=== PATIENT | female | born 1970 | race Caucasian/White ===

== ENCOUNTER → 2022-09-24 14:59 | Outpatient (CLI) | payer OTHER, SELFPAY ==
--- NOTE | ~2022-09-24 | MM_ITS ---
EXAMINATION: MM screening [facility] BI w eugenio HISTORY: Screening TECHNIQUE: Craniocaudal and mediolateral oblique 3-D tomosynthesis images were obtained and synthetic 2-D images were generated. CAD analysis was submitted and interpreted. COMPARISON: No prior mammogram is available for comparison at this institution. BREAST PARENCHYMAL COMPOSITION: The breasts are heterogeneously dense, which may obscure small masses FINDINGS: There are extensive punctate monomorphic bilateral breast calcifications. There are no susp icious masses or architectural distortion. IMPRESSION: 1. Bilateral scattered punctate monomorphic breast calcifications. 2. Comparison to previous outside mammograms recommended to assess stability. BI-RADS Category 0: Incomplete: Needs additional imaging evaluation. Reviewed, dictated and finalized at location A.
== END ==
PROVIDERS: PCP Advanced Practice Midwife; Visit Provider Advanced Practice Midwife
DX: Z12.31 Encounter for screening mammogram for malignant neoplasm of breast (principal); R92.8 Other abnormal and inconclusive findings on diagnostic imaging of breast
CPT/HCPCS: 77063; 77067

== ENCOUNTER → 2023-09-26 10:31 | Outpatient (CLI) | payer OTHER, SELFPAY ==
--- NOTE | ~2023-09-26 | MM_ITS ---
EXAMINATION: MM screening [facility] BI w eugenio HISTORY: Screening TECHNIQUE: Craniocaudal and mediolateral oblique 3-D tomosynthesis images were obtained and synthetic 2-D images were generated. CAD analysis was submitted and interpreted. COMPARISON: Comparison to multiple prior studies sequentially, with oldest reviewed study dated 07/19. BREAST PARENCHYMAL COMPOSITION: The breasts are heterogeneously dense, which may obscure small masses . FINDINGS: There are benign-appearing bilateral breast calcifications. There is no evidence of suspici ous mass, calcification, or architectural distortion to suggest malignancy in either breast. There jimenez s been no suspicious interval change. IMPRESSION: 1. No mammographic evidence of malignancy. 2. Recommend routine screening mammography in one year. BI-RADS Category 2: Benign finding(s). Reviewed, dictated and finalized at location A. [employer]
== END ==
PROVIDERS: PCP Advanced Practice Midwife; Visit Provider Advanced Practice Midwife
DX: Z12.31 Encounter for screening mammogram for malignant neoplasm of breast (principal)
CPT/HCPCS: 77063; 77067

== ENCOUNTER 2024-09-28 11:19 | Outpatient (CLI) | payer OTHER, SELFPAY ==
--- NOTE | ~2024-09-28 | MM_ITS ---
EXAMINATION: MM screening [facility] BI w eugenio HISTORY: Screening TECHNIQUE: Craniocaudal and mediolateral oblique 3-D tomosynthesis images were obtained and synthetic 2-D images were generated. CAD analysis was submitted and interpreted. COMPARISON: Comparison to multiple prior studies sequentially, with oldest reviewed study dated 06/07. BREAST PARENCHYMAL COMPOSITION: Dense: The breasts are heterogeneously dense, which may obscure small masses FINDINGS: There is no evidence of suspicious mass, calcification, or architectural distortion to sugg est malignancy in either breast. There has been no suspicious interval change. IMPRESSION: 1. No mammographic evidence of malignancy. 2. Recommend routine screening mammography in one year. BI-RADS Category 1: Negative Reviewed, dictated and finalized at location B. SUPPORT SERVICE TECH
== END 2024-09-28 11:20 | disposition home or self-care (01) ==
PROVIDERS: Visit Provider Obstetrics & Gynecology
DX: Z12.31 Encounter for screening mammogram for malignant neoplasm of breast (principal)
CPT/HCPCS: 77063; 77067

== ENCOUNTER 2025-02-06 09:24 | Emergency (ER) | payer OTHER, SELFPAY ==
[2025-02-06 09:35] VITALS: BP 113/77; PULSE 54; RESP 18; TEMP 36.4; O2SAT 100
--- NOTE | 2025-02-06 09:45 | ED.URI ---
HPI - URI/Sore Throat General Chief Complaint: Upper Respiratory Infection Stated Complaint: Cough and congestion Time Seen by Provider: 02/06/25 09:46 Source: patient Mode of arrival: ambulatory Limitations: no limitations History of Present Illness HPI Narrative: 55 yo F presents with c/o nasal congestion, sinus pressure since Nov. Has seen ENT and PCP and has taken abx several times for sinus infection. Taking claritin and singulair daily.ENT says next step in sinus surgery and pt does not want that. Has not seen an bathroom tiling professional. Having worsening of congestion and sinus pressure over past week. Yellow drainage from nose. no chest pain or shortness breath. Afebrile. All systems reviewed and negative except as noted above. Related Data Home Medications ?Medication ?Instructions ?Recorded ?Confirmed ?Last Taken ?Type amlodipine 5 mg tablet mg 02/06/25 Unknown History azelastine 137 mcg (0.1 %) nasal intranasal 02/06/25 Unknown History spray esomeprazole magnesium 40 mg mg 02/06/25 Unknown History capsule,delayed release mesalamine 1.2 gram tablet,delayed g PO 02/06/25 Unknown History release montelukast 10 mg tablet mg 02/06/25 Unknown History trazodone 50 mg tablet mg 02/06/25 Unknown History Allergies Allergy/AdvReac Type Severity Reaction Status Date / Time No Known Allergies Allergy Verified 02/06/25 09:36 Review of Systems Review of Systems: CONSTITUTIONAL: Denies fever, chills, or sweats. EYES: Denies visual changes, redness, or discharge. ENT: reports rhinorrhea, congestion, sinus pressure. Denies sore throat, or otalgia. CARDIOVASCULAR: Denies chest pain, palpitations, or edema. RESPIRATORY: Reports cough. Denies dyspnea. GASTROINTESTINAL: Denies abdominal pain, nausea, vomiting, or diarrhea. GENITOURINARY: Denies dysuria or hematuria. SKIN: Denies rash or itching. MUSCULOSKELETAL: Denies back pain, joint pain, or myalgia. NEUROLOGIC: Denies headache, numbness, or weakness. PSYCHIATRIC: Denies anxiety or depression. All other systems reviewed are negative, except as documented in HPI. PMFSH Comments At time of signature, agree with nursing past medical, surgical, social and family history. There is no relevant family history pertinent to the presenting complaint. Exam Narrative: GENERAL: This is a well-nourished, well-developed patient, in no apparent distress. HEAD: normocephalic, atraumatic. EYES: PERRL. Sclera clear/white. Vision is grossly intact. EARS: External ears normal, auditory canals clear and without drainage, TMs normal without perforation. Hearing grossly intact. NOSE: External nose normal with purulent nasal drainage, erythema and swelling to bilateral nares. Frontal and maxillary sinus tenderness on palpation THROAT: Mucous membranes moist, erythematous with postnasal drainage NECK: Neck supple, non-tender without lymphadenopathy, masses or thyromegaly. CARDIOVASCULAR: Regular rate and rhythm without murmurs, gallops, or rubs. RESPIRATORY: Clear to auscultation. Breath sounds equal bilaterally. No wheezes, rales, or rhonchi. SKIN: warm, Dry, intact with no suspicious lesions or rash, good texture and turgor. NEURO: awake, alert, and oriented to person, place and time. There were no obvious focal neurologic abnormalities. EXTREMITIES: No joint tenderness, effusion, or edema noted. Course Course Level of Care: Express Care Visit Vital Signs Vital signs: Vital Signs Temperature 36.4 C 02/06/25 09:35 Pulse Rate 54 L 02/06/25 09:35 Respiratory Rate 18 02/06/25 09:35 Blood Pressure 113/77 02/06/25 09:35 Pulse Oximetry 100 02/06/25 09:35 Oxygen Delivery Room Air 02/06/25 09:35 Temperature 36.4 C 02/06/25 09:35 Pulse Rate 54 L 02/06/25 09:35 Respiratory Rate 18 02/06/25 09:35 Blood Pressure 113/77 02/06/25 09:35 Pulse Oximetry 100 02/06/25 09:35 Oxygen Delivery Room Air 02/06/25 09:35 reviewed MDM - URI/Sore Throat MDM Narrative Medical decision making narrative: will treat with antibiotics bacterial sinusitis due to duration of symptoms and and exam findings. Recommend patient see bathroom tiling professional to further evaluate sinus symptoms. Please be advised this is a medical document. It is intended for [id number] communication. It is written in medical language and may contain unfamiliar abbreviations or verbiage. Medical documents are intended to carry relevant information, facts as evident, and the clinical opinion of the practitioner at the time of the encounter. This report may have been done utilizing a voice recognition system. Attempts have been made to correct errors. However, there may be uncorrected grammatical, spelling, and recognition errors present. The file time of this note does not necessarily represent the time of service. Discharge Plan Discharge Clinical Impression: Acute bacterial sinusitis Patient Disposition: Home, Self-Care Condition: Stable Instructions: Antibiotic Form, Sinusitis (ED) Additional Instructions: take medications as prescribed. Continue taking allergy medications daily. Take Tylenol or ibuprofen every 6-8 hours as needed for pain and fever. Drink at least 64 oz of water a day. Follow-up with an bathroom tiling professional at next available appointment. Patient Language: Turkmen Prescriptions: New benzonatate 200 mg capsule 200 mg PO TID PRN (Reason: cough) Qty: 20 0RF methylprednisolone [Medrol (Chandan)] 4 mg tablets,dose pack See Rx Instructions PO .COMPLEX Qty: 21 0RF Rx Instructions: orally per package directions amoxicillin-pot clavulanate 875-125 mg tablet 1 tablet PO Q12H 7 Days Qty: 14 0RF No Action mesalamine 1.2 gram tablet,delayed release (DR/EC) PO trazodone 50 mg tablet amlodipine 5 mg tablet esomeprazole magnesium 40 mg capsule,delayed release(DR/EC) montelukast 10 mg tablet azelastine 137 mcg (0.1 %) spray,non-aerosol INTRANASAL Follow-up/Referrals: Nathanael,JOSEFINA David [Primary Care Provider] - Time of Disposition: 09:55
--- OUTSIDE RECORDS SUMMARY | 2025-02-06 10:25 | XMS_ITS | Clinical Summary ---
Author Organization [facility] Address [address] [place] [address] Care Team Providers Care Weaver Hand Loom Name Role Phone Unavailable Primary Care Provider Unavailabl e Immunizations Immunization Administration Dates Next Due Covid-19, Mrna, Lnp-s, PF, 5 0 mcg/0.25 mL dose (Moderna) 12/16/2021 Social History Tobacco Use Types Packs/Day Years Used Date Smoking Tobacco: Never Assessed Comments Unknown Sex and Gender Information Value Date Recorded Sex Assigned at Not on file Legal Sex Female 8:07 PM [employer] Gender Identity Not on file Sexual Orientation Not on file Plan of Treatment Health Maintenance Due Date Last Done Comments Hepatitis C Virus (HCV) Screening 1971 Mammogram 1971 TdaP Immunization 1971 Hepatitis B Immunization (1 of 3 - 19+ 3-dose series) 1990 Pap Smear 01/30/1992 Cervical Cancer Screening (CCS) 2001 HPV/Cotest 2001 Colonoscopy 01/30/2016 Colorectal Cancer Screening 01/30/2016 Cologuard 2021 Immunochemical Fecal Occult Blood 2021 Pneumococcal Immunization (5 0+ years) (1 of 1 - PCV) 2021 Zoster Immunization (1 of 2) 2021 SARS-COV-2 Immunization (#1) 01/13/2022 12/16/2021 Influenza Immunization (#1) 2024 08/25/2015 Respiratory Syncytial Virus (RSV) Immunization (Adult) (1 - 1-dose 75+ series) 2046 Meningococcal Immunization (ACWY) Aged Out No longer eligible based on patient's age to complete this topic Pneumococcal Immunization Combined Aged Out No longer eligible based on patient's age to complete this topic Rotavirus Immunization Aged Out No lo nger eligible based on patient's age to complete this topic
--- OUTSIDE RECORDS SUMMARY | 2025-02-06 10:26 | XMS_ITS | Data Portability ---
Author Organization [place] [facility] [address] [facility], Main Office Address [address] [place] [address] Care Team Providers Care Oil Filters Inspector Name Role Phone SHEFALI GLYNN Primary Care Provider [phone] Assessment No assessment recorded. Plan of Treatment Reminders Order Date Submit Date Provider Last Modified By Organization Details Last Modified Time Details Appointments None recorded. Lab None recorded. Referral None recorded. Procedures None recorded. Surgeries None recorded. Imaging None recorded. Medication Orders cefdinir [address] [facility][id number], [id number], [address], 14:23:25 Diflucan 150 [address] [facility] #[id number], [id number], [address], 14:23:24 Medrol (Chandan) 4 mg tablets in a dose pack 2024 025 [id number] [id number], [address], 14:23:25 Patient TargetsNo targets recorded. Patient Instructions Encounter Date Encounter Id Patient Instructions Last Modified By Organization Details Last Modified Time 12/26/2024 [id number] Prescribed cefdinir and Medrol Dosepak for antimicrobial coverage and inflammation. Also prescribed Diflucan due to candidiasis history with antibiotic use. Discussed possible side-effects with each medications. She will have a sinus CT completed. We will follow up when those results become available. [email or web address] Not available 12/26/2024 14:24:50 Reason for Referral None Reported. Results Created Date Observation Date Name Description Value Unit Range Abnormal Flag Note LastModifiedBy Organization Detail LastModifiedTime 12/31/19 25 12/28/2024 CT, sinus es, w/o contr ast No observ ation record ed. [email or web address] [id number] [place] [address], [place], [address], 12/31/2024 09:27:15 01/02/20 25 01/02/2025 CT, sinus es, w/o contr ast No observ ation record ed. [facility] [address] [place], [address], 01/02/2025 12:56:19 Result Notes None recorded. Problems Name Problem SNOMED Code Status Onset Date Resolution Date Notes Provider Name and Address Organization Details Recorded Time Chronic sinusitis 62727494 Active 025 Eli Braga RN [facility], [place] - [facility] 14:16:07 Problem Notes None recorded. Procedures Surgical History None recorded. Imaging Results Imaging Date Name Status LastModified by Organiz ation Details LastModified Time 12/28/2024 CT, sinuses, w/o contrast completed [email or web address] [id number] [place] [facility] [address], [place], [address], 12/31/2024 09:27:15 01/02/2025 CT, sinuses, w/o contrast completed [facility] [address] [place], [address], 01/02/2025 12:56:19 Procedure Notes None recorded. Medical Equipment None Reported. Allergies No known drug allergies Medications Name Sig Start Date Stop Date Status Note LastModified by Organization Details LastModified Time nitrofurantoin macrocrystal 50 mg capsule active Not Available Not Availabl e Not Available fluconazole 150 mg tablet TAKE 1 TABLET BY MOUTH DIRECTED active Not Available Not Available No t Available amlodipine 5 mg tablet active Not Available Not Available No t Available prednisolone acetate 1 % eye drops,suspensi on active Not Available Not Available Not Available esomeprazole magnesium 40 mg capsule,delaye d release active Not Available Not Available No t Available montelukast 10 mg tablet active Not Available Not Available No t Available zolpidem 10 mg tablet TAKE 1 TABLET BY MOUTH NIGHTLY NEEDED FOR SLEEP active Not Available Not Available No t Available methylpredniso lone 4 mg tablets in a dose pack TAKE 6 TABLETS ON DAY 1 DIRECTED ON PACKAGE AND DECREASE BY 1 TAB EACH DAY FOR A TOTAL OF 6 DAYS active Not Available Not Available No t Available cefdinir 300 mg capsule TAKE 1 CAPSULE BY MOUTH EVERY 12 HOURS FOR 10 DAYS active Not Available Not Available No t Available Claritin active Not Available Not Avai lable Not Available mesalamine 1.2 gram tablet,delayed release active Not Available Not Available Not Available Vitals Date Recorded Body weight Body mass index (BMI) Body height Body temperature Provider Name and Address Organization Details Last Updated DateTime 12/26/2024 93377.29 g 26.2 kg/m2 149.86 cm 98 [degF] Eli Braga RN [facility] [address] [facility] 12/26/2024 14:09:09 Social History Question Answer Notes LastModified by Organizat ion Details LastModified Time Tobacco Smoking Status Never Smoker Eli Braga RN null, [facility] [address] [facility] 12/26/2024 14:04:54 What Is Your Level Of Alcohol Consumption? Occasional [email or web address] Information not available 12/26/2024 Sex: Unknown Functional Status None recorded. Mental Status None recorded. Family History Nothing Reported Notes:NO ENT Medical History Condition Response HYPERTENSION Y Gynecological HistoryNo gynecological history recorded. Obstetrics History GPAL:G 0 P 0 0 0 0 Past Encounters Encounter ID Performer Location Encounter Start Date Encounter Closed Date Diagnosis/Indication Diagnosis SNOMED-CT Code Diagnosis ICD10 Code Diagnosis Note [id number] RUBEN Whiting [facility] [place] [address] [place] [address] 12/26/2024 13:58:00 12/26/2024 14:25:20 Chronic sinusitis 98841082 J32.9 Health Concerns Section Related Observation LastModified by Organization Detai ls LastModified Time None Recorded Concern Status LastModified by Organization Details LastModified Time None Recorded Advance Directives Directive None Recorded Payers Encounter Date Sequence Insurance Name Policy Number Policy Pugh Covered Member ID Pugh Member ID Guarantor Name 12/26/2024 1 [employer] - DOS PRIOR TO 2024 - [employer] () Devan Crawford [id number] oRmy Yvette Notes Date Note Type Note Provider Name and Address Organization Details Recorded Time 12/26/2024 text/html This patient has a past medical history significant for hypertension, ulcerative colitis, and kidney stones who presents to the office with persistent nasal congestion and sinus pressure onset approximately 3 months ago. She does report use of Singulair, Claritin, Flonase, and occasional Neti pot use without symptom relief. She has not been on any recent antibiotics or steroids for the use concerns. She has not had any imaging completed. She does note that about 5 years ago she had similar symptoms severe enough that she had vertigo like symptoms. Eli Figueredo, [facility] [address] [facility], [facility] [facility] [address], [place], [address], [facility] 12/26/2024 14:24:54 OBGyn Episode No OBEpisode recorded.
--- OUTSIDE RECORDS SUMMARY | 2025-02-06 10:26 | XMS_ITS | Data Portability ---
Author Organization 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 Needs refills on norvasc, macrodantin and ambien. She typically breaks ambien in half. Will send out 90 supply of each. [email or web address] Not available 11/05/2021 12:29:24 11/25/2023 11/25/2023 Annual gynecological exam performed. Patient will come back in a year unless there are new symptoms. Not available 11/25/2023 11:05:57 Plan of Treatment Reminders Order Date Submit Date Provider Last Modified By Organization Details Last Modified Time Details Appointments None recorded. Lab None recorded. Referral None recorded. Procedures None recorded. Surgeries None recorded. Imaging None recorded. Medication Orders Macrodantin 50 mg capsule 2020 [facility]/Pharmacy #[id number], [address] [place] [address], [address], 12:04:34 Norvasc 5 mg tablet 2020 021 [facility]/Pharmacy #[id number], [address], [place], [address], 12:04:35 Ambien 10 mg tablet 12/16/ 2021 12/16/2 021 [email or web address] Not available 12:04:27 Patient TargetsNo targets recorded. Patient InstructionsNo instructions recorded. Reason for Referral None Reported. Results Created Date Observation Date Name Description Value Unit Range Abnormal Flag Note LastModifiedBy Organization Detail LastModifiedTime 11/05/20 21 11/05/2021 IMAGE GUIDE D PAP AND HPV REGAR DLESS image guided Pap, HPV regardless of Pap result SEE RESULT S BELOW CASE REPOR T: Cytol ogy Gynec ologi andrae Repor t Case: [id number] Autho antwon martino Provi raghavendra: Charito Yu, CNLavinia Colle cted: 11/05 1222 Order ing Locat ion: [place] Patho logy Recei keaton: 11/06 0115 First Scree n: Richard Matson , [place] Rescr een: Deysi plaza, Adis santana, [place] Speci men: Scree farzad Pap - Image d, Cervi x STATE MENT OF ADEQU ACY: Satis facto ry for evalu ation Trans forma tion zone compo nent prese nt FINAL DIAGN OSIS: Negat mecca for Intra epith elial Lesio n or Miguel lucas (NIL) . Elect manju mckeon domenica d by Deysi plaza, Adis santana, CT on 11/16 at 7:47 PM ----- ----- ----- ----- ----- ----- ----- ----- ----- ----- ----- ----- ----- ----- ----- ----- ----- ---- HPV RESUL TS: HPV mRNA E6/E7 : No HPV mRNA Detec yrn NOTE: This high risk HPV mRNA assay detec ts fourt een high- risk HPV types (16, 18, 31, 33, 35, 39, 45, 51, 52, 56, 58, 59, 66, 68) witho ut diffe renti ation . COMME NT: Note: This speci men was revie wed by a Cytot echno logis t and/o r Patho logis t (as indic ated in this repor t) after evalu ation using the Thinp rep Imagi ng Syste m. CLINI ANDRAE INFOR MATIO N: Menst rual Statu s: LMP (if appli cable ): Clini andrae Histo ry/Pr eviou s Pap: Type of Neopl quynh (if appli cable ): Signi fican t Clini andrae Findi ngs: Other Histo ry: Hormo clara (if appli cable ): PAP EDUCA RASHI L NOTE: The Pap Test is a scree farzad test with an inher ent false negat mecca rate. Liqui d-bas e sampl ing may decre ase, but will not elimi karina, false negat mecca resul ts. A negat mecca resul t does not precl ude the prese nce and/o r devel opmen t of disea se, since the prese nce of abnor mal cells in the sampl e depen ds on the locat ion of the lesio n and sampl ing techn ique. Reymundo nued regul ar scree farzad is the best metho d of cance r preve ntion . If repor yrn cytol ogic findi ng do not corre late with physi andrae and/o r histo rical findi ngs, furth er inves tigat ion is recom analia d, as clini harika perry nted. Not Available [facility] (Lab) [address], [place], [address], 11/16/2021 20:49:44 11/25/19 24 11/25/2023 IMAGE GUIDE D PAP AND HPV REGAR DLESS image guided Pap, HPV regardless of Pap result SEE RESULT S BELOW CASE REPOR T: Cytol ogy Gynec ologi andrae Repor t Case: [id number] Autho antwon g Provi raghavendra: Danika Rose NP Colle cted: 11/25 1500 Order ing Locat ion: [place] Patho [place]y Recei keaton: 11/28 0726 First Scree n: Kathleen Enciso h, CT Rescr een: Aicha Samson Speci men: Scree farzad Pap - Image d, Cervi x STATE MENT OF ADEQU ACY: Satis facto ry for evalu ation Trans forma tion zone compo nent absen t The absen ce of an endoc ervic al compo nent was confi rmed by an addit clifton jacobs. FINAL DIAGN OSIS: Negat mecca for Intra epith elial Lesio n or Miguel lucas (NIL) . Elect malihaiglesia metzger d by Aicha Samson on 024 at 7:31 PM ----- ----- ----- ----- ----- ----- ----- ----- ----- ----- ----- ----- ----- ----- ----- ----- ----- ---- HPV RESUL TS: HPV mRNA E6/E7 : No HPV mRNA Detec yrn NOTE: This high risk HPV mRNA assay detec ts fourt een high- risk HPV types (16, 18, 31, 33, 35, 39, 45, 51, 52, 56, 58, 59, 66, 68) witho ut diffe renti ation . COMME NT: This speci men was revie wed by a Cytot echno logis t and/o r Patho logis t (as indic ated in this repor t) after evalu ation using the Thinp rep Imagi ng Syste m. CLINI ANDRAE INFOR MATIO N: Menst rual Statu s: LMP (if appli cable ): Clini andrae Histo ry/Pr eviou s Pap: Type of Neopl quynh (if appli cable ): Signi fican t Clini andrae Findi ngs: Other Histo ry: Hormo clara (if appli cable ): PAP EDUCA RASHI L NOTE: The Pap Test is a scree farzad test with an inher ent false negat mecca rate. Liqui d-bas ed sampl ing may decre ase, but will not elimi karina, false negat mecca resul ts. A negat mecca resul t does not precl ude the prese nce and/o r devel opmen t of disea se, since the prese nce of abnor mal cells in the sampl e depen ds on the locat ion of the lesio n and sampl ing techn ique. Reymundo nued regul ar scree farzad is the best metho d of cance r preve ntion . If repor yrn cytol ogic findi ng do not corre late with physi andrae and/o r histo rical findi ngs, furth er inves tigat ion is recom analia d, as clini harika warra nted. Not Available [facility] (Lab) [address], [place], [address], 11/28/2023 20:35:00 09/24/20 22 09/24/2022 MAMMO , scree farzad, bilat eral No observ ation record ed. [address], [place], [address], 09/27/2022 13:22:47 09/24/20 22 09/24/2022 MAMMO , scree farzad, bilat eral No observ ation record ed. [address] [facility] [address], [place], [address], 09/27/2022 13:22:47 11/25/19 23 09/24/2022 MAMMO , scree farzad, bilat eral No observ ation record ed. [facility] [address], [place], [address], 12/02/2022 18:26:33 11/25/19 23 09/24/2022 MAMMO , scree farzad, bilat eral No observ ation record ed. [facility] [address], [place], [address], 12/02/2022 18:25:54 09/26/20 23 09/26/2023 MAMMO , scree farzad, bilat eral No observ ation record ed. [facility] [address], [place], [address], 10/19/2023 11:03:33 09/28/20 24 09/28/2024 imagi ng/di agnos tic resul t No observ ation record ed. [facility] [address], [place], [address], 09/29/2024 19:54:36 09/28/20 24 09/28/2024 imagi ng/di agnos tic resul t No observ ation record ed. [facility] [address], [place], [address], 09/29/2024 19:54:37 Result Notes None recorded. Problems Name Problem SNOMED Code Status Onset Date Resolution Date Notes Provider Name and Address Organization Details Recorded Time Ulcerative colitis 51315498 Active 2020 Johana Vitale [facility] 10:29:38 Recurrent urinary tract infection 289175960 Active 2020 Johana Vitale [facility] 10:30:17 Problem Notes None recorded. Procedures Surgical History Date Name Laterality Status Provider Name and Address Organization Details Recorded Time 07/18/20 20 Date [facility] 11/04/2021 15:29:39 06/24/20 20 Date of Last [facility]ammogram [facility] 11/04/2021 15:29:13 02/20/20 19 Date of Last [facility]oscopy [facility] 11/05/2021 10:28:30 03/27/20 15 Colposcopy [facility] 11/04/2021 15:54:29 08/05/20 05 section completed [facility] 11/04/2021 16:11:08 04/19/20 02 section completed Johanazoila Vitale [facility] 11/04/2021 16:11:03 Endometrial Ablation completed Johana Doran [facility] 11/04/2021 16:14:33 Dilation and Curettage completed Johana Doran [facility] 11/05/2021 10:27:18 Imaging Results Imaging Date Name [facility] Details LastModified Time 09/24/2022 MAMMO, screening, bilateral completed [email or web address] [place] [facility] [address], [place], [address], 09/27/2022 13:22:47 09/24/2022 MAMMO, screening, bilateral completed [email or web address] [place] [facility] [address], [place], [address], 09/27/2022 13:22:47 09/24/2022 MAMMO, screening, bilateral completed [facility] [address], [place], [address], 12/02/2022 18:26:33 09/24/2022 MAMMO, screening, bilateral completed [facility] [address], [place], [address], 12/02/2022 18:25:54 09/26/2023 MAMMO, screening, bilateral completed [facility] [address], [place], [address], 10/19/2023 11:03:33 09/28/2024 imaging/diagno stic result completed [facility] [address], [place], [address], 09/29/2024 19:54:36 09/28/2024 imaging/diagno stic result completed [facility] [address], [place], [address], 09/29/2024 19:54:37 Procedure Notes None recorded. Medical Equipment None Reported. Allergies No known drug allergies Medications Name Sig Start Date Stop Date Status Note LastModified by Organization Details LastModified Time fluconazole 100 mg tablet 11/04 completed Not Available Not Available Not Available nitrofurant oin macrocrysta l 50 mg capsule Take 1 capsule every day by oral route. active Not Available Not Available No t Available Norvasc 10 mg tablet Take 1 tablet every day by oral route. active Not Available Not Available No t Available ofloxacin 0.3 % eye drops active Not Available Not Available Not Available amlodipine 5 mg tablet Take 1 tablet every day by oral route. active Not Available Not Available No t Available sulfamethox azole 800 mg-trimetho prim 160 mg tablet 11/04 completed Not Available Not Available Not Available ketorolac 0.5 % eye drops active Not Available Not Available Not Available prednisolon e acetate 1 % eye drops,suspe nsion PLEASE SEE ATTACHED FOR DETAILED DIRECTION S active Not Available Not Available No t Available esomeprazol e magnesium 40 mg capsule,del ayed release active Not Available Not Available Not Available nitrofurant oin macrocrysta l 100 mg capsule 11/04 completed Not Available Not Available Not Available brimonidine 0.2 % eye drops 11/04 completed Not Available Not Available Not Available dorzolamide 22.3 mg-timolol 6.8 mg/mL eye drops INSTILL 1 DROP INTO BOTH EYES TWICE A DAY active Not Available Not Available No t Available montelukast 10 mg tablet active Not Available Not Available Not Available loteprednol etabonate 0.5 % eye drops,suspe nsion PLEASE SEE ATTACHED FOR DETAILED DIRECTION S active Not Available Not Available No t Available zolpidem 10 mg tablet TAKE 0.5 TABLETS BY MOUTH NIGHTLY NEEDED FOR SLEEP. active Not Available Not Available No t Available fluticasone propionate 50 mcg/actuati on nasal spray,suspe nsion 11/04 completed Not Available Not Available Not Available dorzolamide 2 % eye drops INSTILL 1 DROP INTO LEFT EYE TWICE A DAY active Not Available Not Available No t Available mesalamine 1,000 mg rectal suppository active Not Available Not Available Not Available valacyclovi r 11/05 completed Not Available Not Available Not Available mesalamine 1.2 gram tablet,jose g yed release TAKE 4 TABLET BY MOUTH ONCE A DAY FOR 90 DAYS active Not Available Not Available No t Available GaviLyte-G 236 gram-22.74 gram-6.74 gram-5.86 gram oral solution TAKE 2 LITERS BY MOUTH TWICE A DAY DIRECTED active Not Available Not Available No t Available dorzolamide -timolol (PF) 2 %-0.5 % eye drops in a dropperette INSTILL 1 DROP INTO LEFT EYE TWICE A DAY active Not Available Not Available No t Available Vitals Date Recorded Body weight Body mass index (BMI) Body height Systolic blood pressure Diastolic blood pressure Provider Name and Address Organization Details Last Updated DateTime 11/05/2021 42241.56 g 27.5 kg/m2 149.86 cm 116 mm[Hg] 76 mm[Hg] Johana Vitale [facility] 10:26:21 Date Recorded Body height Body mass index (BMI) Body weight Systolic blood pressure Diastolic blood pressure Provider Name and Address Organization Details Last Updated DateTime 11/25/2023 149.86 cm 26.1 kg/m2 90161.42 g 118 mm[Hg] 80 mm[Hg] Meche [facility] 4 11:08:44 Social History Question Answer Notes LastModified by Organizat ion Details LastModified Time Tobacco Smoking Status Never Smoker [facility] 11/25/2023 11:06:50 Do You Have An Advance Directive? No [email or web address] Information not available 11/05/2021 What Is Your Level Of Alcohol Consumption? Occasional [email or web address] Information not available 11/05/2021 How Many Years Have You Consumed Alcohol? 30 [email or web address] Information not available 11/05/2021 Are You Blind Or Do You Have Difficulty Seeing? No Information not available 11/25/2023 What Is Your Level Of Caffeine Consumption? Occasional Information not available 11/05/2021 In The 14 Days Before Symptom Onset, Have You Had Close Contact With A Laboratory-confir med COVID-19 While That Case Was Ill? No [email or web address] Information not available 11/05/2021 In The 14 Days Before Symptom Onset, Have You Had Close Contact With A Person Who Is Under Investigation For COVID-19 While That Person Was Ill? No [email or web address] Information not available 11/05/2021 Have You Been To An Area Known To Be High Risk For COVID-19? No [email or web address] Information not available 11/05/2021 Are You Deaf Or Do You Have Serious Difficulty Hearing? No [email or web address] Information not available 11/05/2021 What Type Of Diet Are You Following? REGULAR [email or web address] Information not available 11/05/2021 What Is The Highest Grade Or Level Of School You Have Completed Or The Highest Degree You Have Received? 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 Yes [email or web address] Information not available 11/05/2021 Do You Use Protection During Sex? Usually [email or web address] Information not available 11/05/2021 Do You Use Your Seat Belt Or Car Seat Routinely? Yes [email or web address] Information not available 11/05/2021 Do You Have Smoke And Carbon Monoxide Detectors In Your Home? Yes [email or web address] Information not available 11/05/2021 How Much Tobacco Do You Smoke? No Information not available 11/05/2021 Do You Feel Stressed (tense, Restless, Nervous, Or Anxious, Or Unable To Sleep At Night)? [id number] Information not available 11/05/2021 Do You Use Any Illicit Or Recreational Drugs? No [email or web address] Information not available 11/05/2021 Do You Use Sunscreen Routinely? Yes [email or web address] Information not available 11/05/2021 Have You Used IV Drugs? No [email or web address] Information not available 11/05/2021 Sex: Unknown Functional Status Question Answer Note LastModified by Organizat ion Details LastModified Time Do you have difficulty walking or climbing stairs? No Information not available 11/25/2023 Are you able to walk? YESWOREST [email or web address] Information not available 11/05/2021 Are you able to care for yourself? Yes Information not available 11/25/2023 Do you have difficulty dressing or bathing? No Information not available 11/25/2023 What is your exercise level? None [email or web address] Information not available 11/05/2021 Mental Status None recorded. Family History Relationship Description Onset Age of this Age Resolved Age Notes LastModified by Organization Details LastModified Time Unspecified Relation Hypertensive disorder [email or web address] Not available 2020 16:10:08 Father Malignant melanoma Not available 2023 10:59:10 Mother Malignant melanoma [email or web address] Not available 2023 10:59:10 Notes:Cancer risk form compl ete 11/03/2021 Medical History Condition Response Other Acid Reflux (GERD) Y History of abnormal pap Y Urinary Tract Infection Y Pre-Eclampsia Y Hypertension Y GI Problems Y Gynecological History Statement/Question Response Abnormal Pap Y Date of Last Mammogram 06/24/2020 Date of LMP 11/21/2016 On BCP's at Conception? N N Was last menstrual period normal N STIs/STDs N HPV Vaccine N Colposcopy 03/27/2015 Current Control Method Ablation Age at First Child 29 Are cycles usually normal N Date of Last Colonoscopy 02/19/2019 Sexually Active? Y Menses Monthly N Age of first menstrual cycle 16 Date of Last Pap Smear 07/18/2020 Sexual Problems? N Desired Control Method Condoms LMP Definite N Obstetrics History GPAL:G 3 P 2 1 0 3 Type Value Full Term 2 Premature 1 Living 3 Total 3 Past Encounters Encounter ID Performer Location Encounter Start Date Encounter Closed Date Diagnosis/Indication Diagnosis SNOMED-CT Code Diagnosis ICD10 Code Diagnosis Note [id number] Charito Eden [place] [address] [address] 11/05/2021 10:10:28 11/05/2021 14:21:20 Gynecologic examination 96313681 Z01.419 Take Calcium with Vitamin D 12-1500mg daily. Do monthly self breast exams. It is advised to get annual flu shot in the fall and she could obtain at [facility] or [facility] clinic. If you haven't received the Tdap vaccine in the last 10 years you should obtain one as well. Have mammogram yearly, bone density every 2-3 years and colonoscop y every 5-10 years depending on findings and history. Order given for mammogram. Colonoscop y yearly for uc. Engage in daily exercise of low impact aerobic exercise 45-60 minutes 4-5 times weekly. Avoid tobacco and illicit drugs as well as using moderation with alcohol intake less than 1-2 8 oz beverages daily. This lifestyle behavior pattern will lead to less health conditions and longer life span. If BMI greater than 25 weight watchers or dietary consult advised. Questions have been answered. Patient appears to understand instructio ns, but if you have any further questions call or respond to this email. Hypertensive disorder 38 513989 I10 Urinary tr act infectious disease 24551640 N39.0 Insomnia 501099177 G47.0 0 [id number] RIDDHI Coleman [place] [address] [address] 11/25/2023 10:56:54 11/25/2023 14:06:41 Gynecologic examination 69621467 Z01.419 WWEpap updatedSTI testing declinedma mmogram/co lonoscopy [facility] labs UTD/PCPRTC in 1 yr or sooner if needed Take Calcium with Vitamin D daily. Do monthly self breast exams. It is advised to get annual flu shot in the fall and she could obtain at [facility] or [facility] take care clinic. If you haven't received the Tdap vaccine in the last 10 years you should obtain one as well. Have mammogram yearly, bone density every 2-3 years and colonoscop y every 5-10 years depending on findings and history. Engage in daily exercise of low impact aerobic exercise 45-60 minutes 4-5 times weekly. Avoid tobacco and illicit drugs. This lifestyle behavior pattern will lead to less health conditions and longer life span. If BMI greater than 25 dietary consult advised. Questions have been answered. Patient appears to understand instructio ns, but if you have any further questions call or respond to this email Health Concerns Section Related Observation LastModified by Organization Detkaelyn syed LastModified Time None Recorded Concern Status LastModified by Organization Details LastModified Time None Recorded Advance Directives Directive N: Payers Encounter Date Sequence Insurance Name Policy Number Policy Pugh Covered Member ID Pugh Member ID Guarantor Name 11/05/2021 1 SUMEET [employer] - DOS PRIOR TO 2024 - [employer] () Devan Yvette [id number] Romy Crawford 11/25/2023 1 [employer] - DOS PRIOR TO 2024 - [employer] () Devan Uriartemmer [id number] Romy Yvette Notes Date Note Type Note Provider Name and Address Organization Details Recorded Time 11/05/2021 text/html Annual GYNReport ed bypatient.Menstrual cycle:Ablation about 4 years ago or more. Urinary symptoms:No hematuria; No incontinence Vulva:No genital lesion Vagina:Normal vaginal discharge Breast:No breast pain; No breast lump; No nipple discharge Sexual complaints:No sexual complaints; No pain during intercourse; Normal libido Menopausal Symptoms:No menopausal symptoms; Normal vaginal lubrication Psychological symptoms:No depression; No anxiety; No PMDD Charito rai [facility] 11/05/2021 12:30:02 11/25/2023 text/html Annual Insurance Examiner Post-MenopausalRepor yrn bypatient.Menopausal Symptoms:no menopausal symptoms; normal vaginal lubrication Vaginal Bleeding:history of menopause having occurred; no history of post menopausal bleeding Urinary Symptoms:no hematuria; no incontinence; no nocturia; no urinary frequency Vulva:no genital lesion; no vulvar atrophy Vagina:normal vaginal discharge; no vaginal atrophy Breast:no breast lump; no nipple discharge; no breast pain Sexual Complaints:no sexual complaints Psychological Symptoms:no depression; no anxiety Preventive Measures:encourage regular mammograms starting age 40; encourage self breast examination; encourage regular exercise; encourage no tobacco use; mammogram performed within the past year; history of recent colonoscopyNotes:h/o abnormal pap 2014 w/ LEEPh/o ascus, HPV (+) 2019pap in 2020 - normal h/o ablation 6 yrs - no periods sincemammogram UTD, colonscopy UTD RIDDHI Coleman [address], [place], [address], [facility] 11/25/2023 13:59:39 OBGyn Episode Ob Episode Information Episode Created Date Number of Fetuses Patient Bloodtype Patient rh Status Prepregnancy Weight lbs Domestic Partner Domestic Partner Phone Father Name Frame Straightener Status 11/04/20 21 1 CLOSED Fetus Data First Name Last Name Admitted to NICU Weight (g) Sex Living Outcome Pediatric Complications Fetus ID Race Codes Race Delivery Type 3288.54 2 M Full Term [id number] Repeat Ricardo Calculation Initial Ricardo Date Initial Exam Date Initial Exam Provider Initial Ultrasound Date Last Menstrual Period Date Ultra Sound Weeks Gestation 0 Eighteen To Twenty Week Ricardo Update Ultra Sound Date Fundal Height At Umbil Quickening Date Ultra Sound Latest Weeks Gestation Final Ricardo Confirmed By Final Ricardo Confirmed Date Final Ricardo Date Ultra Sound Latest Days Gestation 0 0 Menstrual History Last Menstrual Date Menses Monthly On Bcp Conception Prior Menses Frequency Hcg Plus Date Menarche Onset Age Delivery Information Delivery Date Delivery Type Labor Anesthesia Weeks Gestation Incision Type Labor Labor Length Hrs Delivered By Post Complications Tubal Sterilization Discharge Date Comments 5 38 Discharge Information Feeding Method Contraceptive Method Maternal HG B and HCT Levels Ob Episode Information Episode Created Date Number of Fetuses Patient Bloodtype Patient rh Status Prepregnancy Weight lbs Domestic Partner Domestic Partner Phone Father Name Frame Straightener Status 11/04/20 21 1 CLOSED Fetus Data First Name Last Name Admitted to NICU Weight (g) Sex Living Outcome Pediatric Complications Fetus ID Race Codes Race Delivery Type 2381.35 8 [id number] Vaginal Delivery Ricardo Calculation Initial Ricardo Date Initial Exam Date Initial Exam Provider Initial Ultrasound Date Last Menstrual Period Date Ultra Sound Weeks Gestation 0 Eighteen To Twenty Week Ricardo Update Ultra Sound Date Fundal Height At [place] Quickening Date Ultra Sound Latest Weeks Gestation Final Ricardo Confirmed By Final Ricardo Confirmed Date Final Ricardo Date Ultra Sound Latest Days Gestation 0 0 Menstrual History Last Menstrual Date Menses Monthly On Bcp Conception Prior Menses Frequency Hcg Plus Date Menarche Onset Age Delivery Information Delivery Date Delivery Type Labor Anesthesia Weeks Gestation Incision Type Labor Labor Length Hrs Delivered By Post Complications Tubal Sterilization Discharge Date Comments 0 36 Pre-Ecla m psia Discharge Information Feeding Method Contraceptive Method Maternal HG B and HCT Levels Ob Episode Information Episode Created Date Number of Fetuses Patient Bloodtype Patient rh Status Prepregnancy Weight lbs Domestic Partner Domestic Partner Phone Father Name Frame Straightener Status 11/04/20 21 1 CLOSED Fetus Data First Name Last Name Admitted to NICU Weight (g) Sex Living Outcome Pediatric Complications Fetus ID Race Codes Race Delivery Type 3798.83 3 M Full Term [id number] Primary Ricardo Calculation Initial Ricardo Date Initial Exam Date Initial Exam Provider Initial Ultrasound Date Last Menstrual Period Date Ultra Sound Weeks Gestation 0 Eighteen To Twenty Week Ricardo Update Ultra Sound Date Fundal Height At [place] Quickening Date Ultra Sound Latest Weeks Gestation Final Ricardo Confirmed By Final Ricardo Confirmed Date Final Ricardo Date Ultra Sound Latest Days Gestation 0 0 Menstrual History Last Menstrual Date Menses Monthly On Bcp Conception Prior Menses Frequency Hcg Plus Date Menarche Onset Age Delivery Information Delivery Date Delivery Type Labor Anesthesia Weeks Gestation Incision Type Labor Labor Length Hrs Delivered By Post Complications Tubal Sterilization Discharge Date Comments 2 40 12 Discharge Information Feeding Method Contraceptive Method Maternal HG B and HCT Levels
--- OUTSIDE RECORDS SUMMARY | 2025-02-06 10:26 | XMS_ITS | Referral Summary ---
Author Organization [facility] Address [address] [place] [address] Care Team Providers Care Staff Rn Name Role Phone Rachel Huffman Primary Care Provider [phone] Encounters Date Type Department Care Team Description 01/30/2025 Letter (Out) [address] [address] 01/30/2025 10:30 AM CDT Office Visit [address] [phone] Rachel Huffman PA Chronic maxillary sinusitis (Primary Dx); Insomnia, unspecified; Mixed hyperlipidemia; Bilateral hearing loss, unspecified hearing loss type 12/07/2024 11:45 AM RESERVOIR ENGINEERING CONSULTANT Office Visit [facility] Ophthalmology [address] [facility] [address] [place] [address] Speedy Ballesteros MD Chronic anterior uveitis of both eyes (Primary Dx); Secondary open-angle glaucoma of left eye; Combined forms of age-related cataract of right eye from Last 3 Months Allergies No known active allergies Medications esomeprazole DR (NexIUM) 40 mg capsuleIndicati ons:Treatment of Non-Bleeding Gastric Disorder Take 1 capsule (40 mg total) by mouth 2 (two) times a day 03/05/20 10 Active mesalamine (LIALDA) 1.2 gram EC tabletIndicatio ns:Ulcerative Colitis Take 4 tablets (4.8 g total) by mouth nightly 03/05/20 10 Active nitrofurantoin (MACRODANTIN) 50 mg capsuleIndicati ons:Prophylaxis , Medical Take 1 capsule (50 mg total) by mouth every morning 07/31/20 21 Active amLODIPine (NORVASC) 5 mg tabletIndicatio ns:Primary hypertension Take 1 tablet (5 mg total) by mouth daily 90 tablet 3 06/27/20 24 Active zolpidem (AMBIEN) 10 mg tabletIndicatio ns:Insomnia, unspecified Take 0.5-1 tablets (5-10 mg total) by mouth nightly as needed for sleep 30 tablet 01/31/20 25 Active loratadine (CLARITIN) 10 mg tablet Take 1 tablet (10 mg total) by mouth daily Active fluticasone propionate (FLONASE) 50 mcg/actuation nasal spray Administer 1 spray into each nostril daily Active traZODone (DESYREL) 50 mg tabletIndicatio ns:Insomnia, unspecified Take 1-2 tablets (50-100 mg total) by mouth nightly as needed for sleep Take 30-60 min before bed 90 tablet 01/31/20 25 025 Active azelastine (ASTELIN) 137 mcg (0.1 %) nasal sprayIndication s:Chronic maxillary sinusitis Administer 1 spray into each nostril 2 (two) times a day Use in each nostril as directed 30 mL 3 01/31/20 25 Active montelukast (SINGULAIR) 10 mg tabletIndicatio ns:Seasonal allergic rhinitis, unspecified trigger TAKE 1 TABLET NIGHTLY 90 tablet 3 02/05/20 25 Active montelukast (SINGULAIR) 10 mg tabletIndicatio ns:Seasonal allergic rhinitis, unspecified trigger TAKE 1 TABLET NIGHTLY 90 tablet 3 03/29/20 24 025 Discontinued zolpidem (AMBIEN) 10 mg tabletIndicatio ns:Insomnia, unspecified TAKE 1/2 - 1 TABLET BY MOUTH AT BEDTIME NEEDED 30 tablet 12/10/19 25 025 Discontinued(R eorder) zolpidem (AMBIEN) 10 mg tabletIndicatio ns:Insomnia, unspecified Take 1 tablet (10 mg total) by mouth nightly as needed for sleep 7 tablet 01/24/20 25 025 Discontinued(R eorder) Active Problems Problem Noted Date Diagnosed Date 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 Discussed risks and benefits of capsulotomy, done today without complication. Mixed hyperlipidemia 06/27/2024 Assessment & Plan (01/30/2025 11:07 AM CDT): Orders: Lipid panel; Future Assessment & Plan (06/27/2024 1:22 PM CDT): New problem. LDL elevated at 183. HDL is also high at 99. Discussed starting a statin to help lower her LDL verses focusing on lifestyle measures first. Patient would prefer to avoid medication at this time. Will plan to recheck labs in 3-6 months. If LDL should increase to 190+ then recommend statin. Recommend healthy low-fat diet. Limit red meats, eat more lean meats. Get at least 150 minutes of exercise per week. Dry eye 04/04/2024 Assessment & Plan (04/04/2024 11:18 AM CDT): Status post (s/p) LASIK Rec PFATs bid+ OU Combined forms of age-related cataract of right eye 05/03/2023 Assessment & Plan (12/07/2024 1:16 PM RESERVOIR ENGINEERING CONSULTANT): She is doing well in the right eye with no. Continue to observe Assessment & Plan (08/09/2024 10:44 PM CDT): She is doing well in the right eye with no. Continue to observe Assessment & Plan (06/27/2024 12:44 PM CDT): Managed by Ophthalmology. Continue current care. Assessment & Plan (01/06/2024 5:37 AM RESERVOIR ENGINEERING CONSULTANT): I wonder if she is noticing the cataract in the right eye despite seeing 20/15. Discussed there are risks with cecy tract surgery, will defer for now; can reassess if she continues to be symptomatic. Will recheck MRx with Dr. Hood next visit. Assessment & Plan (08/01/2023 9:03 PM CDT): She is not interested in cataract surgery at this point. Observe. Insomnia 02/25/2022 Assessment & Plan (06/27/2024 12:45 PM CDT): Chronic and controlled with Ambien. Continue Ambien 5-10 mg nightly p.r.n.. Follow-up 6 months or sooner if needed. Assessment & Plan (01/11/2024 10:58 AM RESERVOIR ENGINEERING CONSULTANT): Chronic and controlled with Ambien. Continue Ambien 5-10 mg nightly p.r.n.. Follow-up 6 months or sooner if needed. Assessment & Plan (03/25/2023 8:58 AM CDT): Chronic. Continue Ambien 5 mg nightly as needed. Follow-up 6 months. Assessment & Plan (02/25/2022 9:25 AM CDT): Chronic. Continue Ambien 5 mg nightly as needed. Follow-up for any new or changing symptoms. Recurrent UTI 02/25/2022 Assessment & Plan (06/27/2024 12:45 PM CDT): Doing well on nitrofurantoin for prevention. Continue to follow with urology as scheduled. Assessment & Plan (01/11/2024 10:58 AM RESERVOIR ENGINEERING CONSULTANT): Doing well on nitrofurantoin for prevention. Continue to follow with urology as scheduled. Assessment & Plan (03/25/2023 9:16 AM CDT): Managed by Urology. Continue nitrofurantoin 50 mg daily for prevention. Follow with Urology as scheduled. Assessment & Plan (02/25/2022 9:25 AM CDT): Chronic. Patient is doing better with a daily preventative antibiotic. Patient will follow-up with her urologist this summer. Seasonal allergic rhinitis 02/25/2022 Assessment & Plan (06/27/2024 12:45 PM CDT): Chronic and stable. Continue Flonase and Singulair. Assessment & Plan (01/11/2024 10:58 AM RESERVOIR ENGINEERING CONSULTANT): Chronic and stable. Continue Flonase and Singulair. Assessment & Plan (03/25/2023 8:59 AM CDT): Chronic. Continue Singulair and Flonase daily as prescribed. Assessment & Plan (02/25/2022 9:26 AM CDT): Allergies have worsened since she moved here. She will continue singular daily. Continue Flonase daily. Add on a daily antihistamine. If no improvement with that she will let me know and we can add on Astelin nasal spray. Patient voiced agreement with this plan. All questions answered. Routine adult health maintenance 02/24/2022 Overview (10/01/2024): Health Maintenance: -PCV20: N/A -Tdap vaccine: 2017 -Influenza vaccine: due in Fall -Shingles vaccine: 02/25/2022, 03/25/2023 -Colonoscopy: 09/06/2023 -Last WWE: 11/25/23 -Last Mammogram: 09/28/24 -Last DEXA: N/A -Last eye exam: 2023 -Last MHA: N/A Assessment & Plan (06/27/2024 1:19 PM CDT): Health Maintenance: -PCV20: N/A -Tdap vaccine: 2017 -Influenza vaccine: due in Fall -Shingles vaccine: 02/25/2022, 03/25/2023 -Colonoscopy: 08/2023 (will request from GI) -Last WWE: 11/25/23 -Last Mammogram: 2023 at [facility] -Last DEXA: N/A -Last eye exam: 2023 -Last MHA: N/A Will request patient's most recent colonoscopy and mammogram. Labs reviewed today. Work on healthy diet and exercise habits. Assessment & Plan (03/25/2023 9:17 AM CDT): Health Maintenance: -PCV20: -Tdap vaccine: 2017 -Influenza vaccine: 2021 -Shingles vaccine: 02/25/2022, 03/25/2023 -Colonoscopy: 05/11/22 (1 year recall), due -Last WWE: 11/05/2021 -Last Mammogram: 09/2022? at [facility] -Last DEXA: N/A -Last eye exam: N/A -Last MHA: N/A Patient due for colonoscopy this summer, she will schedule this with GI. We will request her mammogram and Pap. Second dose of Shingrix administered today. Patient will check with her GI doc on whether she should get the Prevnar 20. Annual labs ordered. Assessment & Plan (02/25/2022 9:25 AM CDT): Health Maintenance: -PCV13 vaccine: N/A -PPSV23 vaccine: -Tdap vaccine: 2018? -Influenza vaccine: 2020 -Shingles vaccine: 02/25/2022 -Colonoscopy: 07/11/19 (1 year recall) -Last WWE: 11/05/2021 -Last Mammogram: ordered by [facility] -Last DEXA: N/A -Last eye exam: N/A -Last MHA: N/A Patient will request her immunization record be sent to our office to review. Patient was agreeable to getting the first dose of Shingrix today. She is scheduled for her colonoscopy this summer. Up-to-date on Pap smear. Mammogram was already ordered by gynecology. She will get this done. Annual labs ordered today. Work on healthy diet and exercise habits. See me annually for routine physicals. GERD (gastroesophageal reflux disease) 2 Assessment & Plan (06/27/2024 12:45 PM CDT): Chronic and stable. Continue Nexium daily. Continue to follow with GI as scheduled. Assessment & Plan (01/11/2024 10:57 AM RESERVOIR ENGINEERING CONSULTANT): Chronic and stable. Continue Nexium daily. Continue to follow with GI as scheduled. Assessment & Plan (03/25/2023 9:15 AM CDT): Chronic. Managed by GI. Continue Nexium 40 mg daily as prescribed. Patient due for EGD this year, she will schedule this with GI. Assessment & Plan (02/25/2022 9:25 AM CDT): Chronic. Continue follow-up with GI for regular EGDs. Continue Nexium 40 mg daily as prescribed. Pseudophakia of left eye 01/19/2022 Assessment & Plan (04/04/2024 11:20 AM CDT): Release updated glasses Rx Assessment & Plan (08/31/2023 11:50 AM CDT): Doing great after cataract surgery, vision is 20/20 without correction today. She has noticed some haziness and has a PCO OS that would be consistent with that. Will increase lotpredol prior to next visit and plan for YAG OS. Assessment & Plan (08/01/2023 9:04 PM CDT): She is doing well after cataract surgery. Stop dorzolamide/timolol, continue to taper prednisolone, continue ketorolac QID OS. Assessment & Plan (04/11/2023 7:54 PM CDT): Despite good vision she is noticing that she is having more truoble seeing especially at night, consistent with worsening of her cataract on exam. - Patient interested in having cataract surgery - R/B/A of surgery discussed in detail with patient including but not limited to infection, bleeding, persistent inflammation, pain, diplopia, ptosis, need for further surgeries, need for spectacle correction after surgery, possible loss of vision, possible loss of the eye, and risks of anesthesia. - Additional risks discussed included need for glasses - The patient understands these risks and wishes to proceed. - Target refraction was discussed with the patient. We discussed near, distance, and monovision; we also discussed multifocal and toric lenses. Procedure: CE/IOL Eye: Both, Left first OR time: 45 minutes Anesthesia: MAC Refractive aim: -0.25 Lens model: ZCB00 Additional details discussed with patient Able to lie flat: Yes Anticipated additional procedures:None Need for perioperative anti-inflammatory therapy: Topical PF q1 PMHx and need for pre-operative physical: No Assessment & Plan (03/25/2023 8:58 AM CDT): Managed by Ophthalmology. Continue eyedrops as prescribed. Assessment & Plan (08/09/2022 10:44 AM CDT): Doing well with new MRx. Observe for now Assessment & Plan (02/11/2022 9:36 AM CDT): Anisometropia - release glasses Rx Assessment & Plan (02/08/2022 11:19 AM CDT): She has a new prescription that she will try out. If she is still unable to drive at night safely will discuss cataract surgery. Secondary open-angle glaucoma of left eye 2020 Overview (12/10/2024): Diagnosis: SOAG OS Tmax: Unknown, patiet reports about 30. Gonio: Open OU 07/2021 Pachy: 549/561 02/08/22 Last Hunt visual field (HVF): 01/02/2024 with diffuse depression on MD OS Last RNFL: 92/67 12/10/24, stable from 01/2022 Target: 23 OS Assessment & Plan (12/10/2024 9:37 PM RESERVOIR ENGINEERING CONSULTANT): IOP is great off drops. Continue to observe off IOP lowering medications. Repeat HVF needed in the next couple of visits, RNFL after 11/2025 Assessment & Plan (08/09/2024 10:46 PM CDT): IOP is great off drops. Continue to observe off IOP lowering medications. Repeat RNFL next visit Assessment & Plan (06/27/2024 1:19 PM CDT): Continue current care per ophthalmology Assessment & Plan (04/04/2024 11:18 AM CDT): Intraocular pressure (IOP) at goal left eye (OS) (16) Assessment & Plan (01/06/2024 5:34 AM RESERVOIR ENGINEERING CONSULTANT): HVF and Nerve oct done today; HVF with diffuse depression but no glaucomatous changes in PSD. IOP is great off drops. Continue to observe off IOP lowering medications.. Assessment & Plan (11/01/2023 12:27 PM RESERVOIR ENGINEERING CONSULTANT): Repeat RNFL next visit now that cataract surgery done Assessment & Plan (08/29/2023 2:37 PM CDT): Repeat testing next visit now that cataract surgery done Assessment & Plan (08/01/2023 10:55 AM CDT): Stop miki/giuseppe, restart dorz Assessment & Plan (04/11/2023 8:55 AM CDT): IOP at target Ou. Given that her Tmax was when she was on difluprendate, I feel safe to stop at least one mediation, will consider stopping second depending on her response. Stop dorzolamide/timolol OS, start dorzolamide BID OS Assessment & Plan (03/25/2023 8:58 AM CDT): Managed by Ophthalmology. Continue eyedrops as prescribed. Assessment & Plan (08/09/2022 10:47 AM CDT): IOP is acceptable today. With previous pressures in the 30s and relatively healthy looking nerve will set target at 23. Continue dorzolamde/timolol BID OS. RNFL next visit. Assessment & Plan (02/11/2022 9:37 AM CDT): intraocular pressure (IOP) adequate on Cosopt - CPM Assessment & Plan (02/08/2022 11:20 AM CDT): IOP acceptable today, RNFL full OD, thin OS. Will get HVF on follow up. Assessment & Plan (08/10/2021 8:45 AM CDT): Gonio open. Will observe closely if steroid dose increases Chronic anterior uveitis of both eyes 08/03/2021 Overview (01/06/2024): Diagnosis: Acute anterior uveitis both eyes Complications: cataract and ocular hypertension/glaucoma Last active: 07/2020 OS, 10/31/23 OD Systemic associations: Ulcerative colitis Labs: Positive: None Negative/normal: CXR and IRVING Other notes: Assessment & Plan (12/10/2024 9:38 PM RESERVOIR ENGINEERING CONSULTANT): She has no active inlfammation today OU. Continue to treat flares as she has had long periods of quiescence off therapy. She has done well with loteprednol in the past due to steroid response. Assessment & Plan (08/09/2024 10:44 PM CDT): She has no active inlfammation today OU despite recent symptoms. Continue to treat flares as she has had long periods of quiescence off therapy. She has done well with loteprednol in the past due to steroid response. Assessment & Plan (06/27/2024 1:18 PM CDT): Continue to see Ophthalmology. Assessment & Plan (04/04/2024 11:20 AM CDT): No a/c inflammation. Follow up as scheduled with Dr. Ballesteros Assessment & Plan (01/06/2024 5:32 AM RESERVOIR ENGINEERING CONSULTANT): She has no active inlfammation today OU. Continue to treat flares as she has had long periods of quiescence off therapy. She has done well with loteprednol in the past due to steroid response Assessment & Plan (11/01/2023 12:26 PM RESERVOIR ENGINEERING CONSULTANT): She has no active inlfammation today OS but does have an initial episode of uveitis OD. Start loteprednol every hour while awake for 1 week, then every 2 hours while awake for 1 week, then six times a day for 1 week, then four times a day for 1 week, then 3 times a day for 1 week, then 2 times a day for week, then once a day for 1 week, then stop Assessment & Plan (08/31/2023 11:50 AM CDT): She has no active inlfammation today. Switch to loteprednol TID for 1 week, then BID for 1 week, then continue daily. If she is quiet after YAG we will discuss stopping completely Assessment & Plan (04/11/2023 8:55 AM CDT): She has no active inflammation, continue loteprednol daily OS Assessment & Plan (03/25/2023 8:58 AM CDT): Managed by Ophthalmology. Continue eyedrops as prescribed. Assessment & Plan (08/09/2022 10:44 AM CDT): She has no active inflammation, continue loteprednol daily OS Assessment & Plan (02/11/2022 10:04 AM CDT): Quiet left eye (OS) - cont lotemax one drop daily left eye (OS) - keep scheduled FUV with Dr. Ballesteros Assessment & Plan (02/08/2022 11:18 AM CDT): She has no active inflammation. Continue loteprednol daily OS. Will discuss stopping next visit if she remains quiet. Assessment & Plan (08/10/2021 10:02 AM CDT): Doing well on loteprednol 0.5% daily. Continue for at least 1 more year before tapering as she has flared when medication is tapered Will get CXR and B27 to ensure no other etiology - low suspicion Follow up [address] Hood undilated exam, me in 6 months. HTN (hypertension) 12/09/2013 Assessment & Plan (06/27/2024 12:45 PM CDT): Chronic and controlled. Continue amlodipine 5 mg daily. Labs reviewed. Work on healthy low salt diet. Get at least 150 minutes of exercise per week. Assessment & Plan (01/11/2024 10:58 AM RESERVOIR ENGINEERING CONSULTANT): Chronic and controlled. Continue amlodipine 5 mg daily. Patient is overdue for labs, reminded her to get these done, lab order given to patient today. Work on healthy low salt diet. Get at least 150 minutes of exercise per week. Assessment & Plan (03/25/2023 8:59 AM CDT): Chronic and controlled. Continue amlodipine 5 mg daily. Labs ordered today. Work on healthy low-salt diet. Work on increasing physical activity. Assessment & Plan (02/25/2022 9:24 AM CDT): Chronic and controlled. Continue amlodipine 5 mg daily. Due for labs, ordered today. Low-salt diet. Get 150 minutes of exercise per week. Ulcerative colitis 12/09/2013 Assessment & Plan (06/27/2024 1:20 PM CDT): Chronic and stable. Continue mesalamine as prescribed. Continue to follow with GI as scheduled. Will request her last colonoscopy. Assessment & Plan (01/11/2024 11:00 AM RESERVOIR ENGINEERING CONSULTANT): Chronic and stable. Continue mesalamine as prescribed. Will request her most recent colonoscopy from her GI provider. Continue to follow with GI as scheduled. Assessment & Plan (03/25/2023 9:16 AM CDT): Chronic and well controlled. Managed by GI provider in [place]. She will schedule follow-up with him for the summer and colonoscopy. Continue mesalamine as prescribed. Update me with any changes. Assessment & Plan (02/25/2022 9:24 AM CDT): Chronic and well controlled. Managed by GI. If patient needs a referral to a GI doc in our area she will call and let me know. Continue current management. Resolved Problems Problem Noted Date Diagnosed Date Resolved Date Acute anterior uveitis of right eye 11/01/2023 06/26/2024 Overview (11/01/2023): Onset 10/31/2023 See overview from CAU OS Assessment & Plan (01/02/2024 11:06 AM RESERVOIR ENGINEERING CONSULTANT): Quiet today Assessment & Plan (11/01/2023 12:27 PM RESERVOIR ENGINEERING CONSULTANT): Active today. see section on CAU OS for treatment plan Routine adult health maintenance 02/24/2022 02/24/2022 Overview (02/24/2022): Health Maintenance: -PCV13 vaccine: N/A -PPSV23 vaccine: -Tdap vaccine: -Influenza vaccine: -Shingles vaccine: -Colonoscopy: -Last WWE: -Last Mammogram: -Last DEXA: N/A -Last eye exam: N/A -Last MHA: N/A Immunizations Immunization Administration Dates Next Due Influenza LAIV (Nasal) 08/21/2024(Deferred: Clau ent Refused) Influenza, Quadrivalent, Spl it, Intramuscular 08/25/2015 Influenza, Quadrivalent, Spl it, Preservative Free, Intramuscular 09/29/2022 Influenza, Unspecified 08/21/2023,2021,08/21/2021,07/25,08/14/2019 Tdap 05/11/2017 ZOSTER Recombinant 03/25/2023,02/25/2022 Social History Tobacco Use Types Packs/Day Years Used Date Smoking Tobacco: Never Smokeless Tobacco: Never Tobacco Cessation:Counseling Given: Not Answered AUDIT-C Answer Date Recorded Q1: How often do you have a drink containing alc ohol? Monthly or less 03/25/2023 Q2: How many drinks containi ng alcohol do you have on a typical day when you are drinking? 1 or 2 03/25/2023 Q3: How often do you have si x or more drinks on one occasion? Less than monthly 03/25/2023 PHQ-2 Answer Date Recorded PHQ-2 Total Score (If total score is 3 or more points, staff should administer the PHQ-9) 0 06/27/2024 Personal Safety Answer Date Recorded Have you ever been in or are you currently in a harmful physical or emotional relationship or is someone making you feel afraid or unsafe? Denies 07/22/2023 Comments No Sex and Gender Information Value Date Recorded Sex Assigned at Not on file Legal Sex Female 1:36 PM CDT Gender Identity Female 03/24/2023 7:46 PM CDT Sexual Orientation Not on file Last Filed Vital Signs Vital Sign Reading Time Taken Comments Blood Pressure 110/76 01/30/2025 10:32 AM CDT Pulse 61 01/30/2025 10:32 AM CDT Temperature 36.4 C (97.5 F) 01/30/2025 10:32 AM CDT Respiratory Rate 18 01/30/2025 10:3 2 AM CDT Oxygen Saturation 99% 01/30/2025 10: 32 AM CDT Inhaled Oxygen Concentration - - Weight 58.5 kg (128 lb 14.4 oz) 025 10:32 AM CDT Height 152.4 cm (5') 01/30/2025 10:32 AM CDT Body Mass Index 25.17 01/30/2025 10:32 AM CDT Plan of Treatment Not on file Medical Devices Implanted Type Area Supervisor Poultry Processing Device Identifier Shelf Expiration Date Model / Serial / Lot CareFlash [id number] 19.0d [employer] Prote[employer] 6mm 13mm 1 Piece Anterior Aspheric Square Edge - [id number] - [id number] Implanted:Qty: 1 on 07/22/2023 by Speedy Ballesteros MD at [facility] Lens Left: Eye [employer] [id number] 10/02/2024 [id number] / [id number] / 0 Procedures Procedure Name Priority Date/Time Associated Diagnosis Comments OCT, OPTIC NERVE - OU - BOTH EYES Routine 12/07/2024 11:45 AM RESERVOIR ENGINEERING CONSULTANT Secondary open-angle glaucoma of left eye MAMMOGRAPHY Routine 09/28/2024 PAP SMEAR WITH HPV Routine 11/25/2023 COLONOSCOPY Routine 09/06/2023 from Last 3 Months or Most Recently Relevant to Health Maintenance Results * OCT, Optic Nerve - OU - Both Eyes (12/07/2024 11:45 AM RESERVOIR ENGINEERING CONSULTANT) RNFL OS 67 micrometers CONTINUUM RNFL OD 92 micrometers CONTINUUM Anatomical Region Laterality Modality Head Optical Coherenc e Tomography Narrative 12/10/2024 9:40 PM RESERVOIR ENGINEERING CONSULTANT Right Eye Average RNFL thickness 92 micrometers. Left Eye Average RNFL thickness 67 micrometers. Notes OD: global 92, stable OS: Global 67, stable Speedy Ballesteros MD OPHTH TOMOGRAPHY Final Res ult * MAMMOGRAPHY (09/28/2024) Mammography Normal Historical Provider HEALTH MAINTENANCE Final Result * PAP SMEAR WITH HPV (11/25/2023) Scribed Pap Smear w/HPV Normal Historical Provider HEALTH MAINTENANCE Final Result * COLONOSCOPY (09/06/2023) Historical Provider HEALTH MAINTENANCE Final Result from Last 3 Months or Most Recently Relevant to Health Maintenance Insurance [employer] CLAIM[employer] [facility] CLAIMS [employer] Care Teams Staff Rn Relationship Specialty Start Date End Date Rachel Huffman PA [address] [place] [address] PCP - General Family Medicine 02/15/22
--- OUTSIDE RECORDS SUMMARY | 2025-02-06 10:26 | XMS_ITS | Data Portability ---
Author Organization [facility] Hosted [facility], [place] Office Address [address] [place] [address] Care Team Providers Care Cook Vacuum Kettle Name Role Phone DEEPIKA CUBA Primary Care Provider Assessment Encounter Date Assessment Date Assessment LastModified by Organization Details LastModified Time 11/19/2019 11/19/2019 Patient presents with a one-week history of URI process. She is draining and coughing up green mucoid material. She has headache sinus pressure and her ears are beginning to become painful and very pressurized she has had Some very minimal shortness of breath no fever or wheezing. Medical history positive for blood pressure GERD Non-smoker Exam healthy pleasant no distress vitals stable afebrile no wheezing Eyes normal TMs pearly mackey nasal mucosa and oral mucosa pink note lesion discharge drainage etc. Neck trachea midline no adenopathy Heart regular no murmur no ectopy lungs bilaterally clear Assessment sinusitis bronchitis Plan: Bactrim DS Delsym as needed Recheck as needed Not available 11/19/2019 18:52:45 Plan of Treatment Reminders Order Date Submit Date Provider Last Modified By Organization Details Last Modified Time Details Appointments None recorded. Lab None recorded. Referral None recorded. Procedures None recorded. Surgeries None recorded. Imaging None recorded. Medication Orders Bactrim DS 800 mg-160 mg tablet 2018 019 INTERFACE Formerly [facility] [id number], [address] , [place], [address], 9 11:47:18 Patient TargetsNo targets recorded. Patient Instructions Encounter Date Encounter Id Patient Instructions Last Modified By Organization Details Last Modified Time 11/19/2019 [id number] Acute Sinusitis: Care Instructions Not available 11/19/2019 18:53:06 Reason for Referral None Reported. Medical Equipment None Reported. Medications Name Sig Start Date Stop Date Status Note LastModified by Organization Details LastModified Time nitrofuranto in macrocrystal 50 mg capsule 11/19 completed Not Available Not Available Not Available ketorolac 10 mg tablet 11/19 completed Not Available Not Available Not Available prednisolone acetate 1 % eye drops,suspen maria isabel 11/19 completed Not Available Not Available Not Available tamsulosin 0.4 mg capsule 11/19 completed Not Available Not Available Not Available esomeprazole magnesium 40 mg capsule,jose g yed release 11/19 completed Not Available Not Available Not Available Norvasc 5 mg tablet Take 1 tablet every day by oral route. active Not Available Not Available No t Available zolpidem 10 mg tablet 11/19 completed Not Available Not Available Not Available cefdinir 300 mg capsule 11/19 completed Not Available Not Available Not Available Bactrim DS 800 mg-160 mg tablet Take 1 tablet every 12 hours by oral route. 2018 active Not Available Not Available Not Avai lable Nexium active Not Available Not Availa ble Not Available Lialda 1.2 gram tablet,delay ed release 11/19 completed Not Available Not Available Not Available Lialda active 4 times a day Not Available Not Available Not Available Suprep Bowel Prep Kit 17.5 gram-3.13 gram-1.6 gram oral solution 11/19 completed Not Available Not Available Not Available Vitals Date Recorded Body height Body mass index (BMI) Body weight Heart rate Oxygen saturation Oxygen saturation in Arterial blood by Pulse oximetry Body temperature Systolic blood pressure Diastolic blood pressure Provider Name and Address Organization Details Last Updated DateTime 9 152.4 cm 24.3 kg/m2 02990.2 5 g 63 /min 98 % 98 % 98.4 [degF] 118 mm[Hg] 70 mm[Hg] [facility] 9 18:31:25 Social History None recorded. Functional Status None recorded. Mental Status None recorded. Family History Nothing Reported. Medical History No medical history recorded. Gynecological HistoryNo gynecological history recorded. Obstetrics History GPAL:G 0 P 0 0 0 0 Past Encounters Encounter ID Performer Location Encounter Start Date Encounter Closed Date Diagnosis/Indication Diagnosis SNOMED-CT Code Diagnosis ICD10 Code Diagnosis Note [id number] DO [place]N [place] Office [address] [place] [address] 11/19/2019 18:21:09 11/19/2019 19:02:12 Acute sinusitis 56982974 J01.90 Health Concerns Section Related Observation LastModified by Organization Detai ls LastModified Time None Recorded Concern Status LastModified by Organization Details LastModified Time None Recorded Advance Directives Directive None Recorded Payers Encounter Date Sequence Insurance Name Policy Number Policy Pugh Covered Member ID Pugh Member ID Guarantor Name 11/19/2019 1 [facility] - DOS PRIOR TO 2024 - [employer] () Romy Crawford [id number] Romy Crawford OBGyn Episode No OBEpisode recorded.
--- OUTSIDE RECORDS SUMMARY | 2025-02-06 10:26 | XMS_ITS | Clinical Summary ---
Author Organization [facility] Address [address] [place] [address] Care Team Providers Care Paper Box Cutter Name Role Phone Rachel Huffman PA-C Primary Care Provider [phone] Encounters Date Type Department Care Team Description 12/28/2024 1:29 PM SOLID FIBER PASTER OPERATOR - 12/28/2024 11:59 PM SOLID FIBER PASTER OPERATOR Hospital Encounter [facility] [address] [place] [address] Eli Santos NP Discharge Disposition: Home or Self Care (Routine Discharge) 12/28/2024 Travel from Last 3 Months Social History Tobacco Use Types Packs/Day Years Used Date Smoking Tobacco: Never Assessed Comments Unknown Sex and Gender Information Value Date Recorded Sex Assigned at Female 12/26/2024 2:22 PM SOLID FIBER PASTER OPERATOR Legal Sex Female 1:45 PM SOLID FIBER PASTER OPERATOR Gender Identity Not on file Sexual Orientation Not on file Plan of Treatment Health Maintenance Due Date Last Done Comments Colorectal Cancer Screening Colonoscopy (10 Years) 1971 Annual Physical 1974 Hepatitis C 1989 Hepatitis B Vaccines (1 of 3 - 19+ 3-dose series) 1990 Cervical Cancer Screening Pap with HPV Testing (Age 30 to 64) Every 5 Years 2001 Mammogram Screening 2011 COVID-19 Vaccine ( season) 2024 12/16/2021 Influenza Adult (#1) 2024 08/21/2023, 09/29/2022, 08/21/2022, Additional history exists Cervical Cancer Screening Pap Smear (Age 30 to 64) Every 3 Years 11/25/2026 11/25/2023 Cervical Cancer Screening with HPV 11/25/2026 DTaP, Tdap and Td Vaccines (2 - Td or Tdap) 05/11/2027 05/11/2017 Zoster Vaccines Completed 03/25/2023, 02/25/2022 Meningococcal B Vaccine Aged Out No l onger eligible based on patient's age to complete this topic Meningococcal Vaccine Aged Out No jori azucena eligible based on patient's age to complete this topic Pneumococcal Vaccine: Pediatrics (0 to 5 Years) and At-Risk Patients (6 to 64 Years) Aged Out No longer eligible based on patient's age to complete this topic RSV Immunizations Under 20 Months Aged Out No longer eligible based on patient's age to complete this topic Procedures Procedure Name Priority Date/Time Associated Diagnosis Comments CT SINUS WO CON Routine 12/28/2024 1:39 PM SOLID FIBER PASTER OPERATOR Chronic sinusitis, unspecified from Last 3 Months Results * CT SINUS WO CON (12/28/2024 1:39 PM SOLID FIBER PASTER OPERATOR) Anatomical Region Laterality Modality Facial Computed Tomogra phy 12/30/2024 10:0 7 PM SOLID FIBER PASTER OPERATOR Impressions 12/30/2024 10:10 PM SOLID FIBER PASTER OPERATOR IMPRESSION: ===== 1. Mild diffuse mucosal thickening of the maxillary sinuses with no air-fluid levels. 2. At least partial opacification of bilateral ostiomeatal units. Referred By: ELI SANTOS Interpreted By: Michel Mejia MD, 12/30/2024 10:07 PM Narrative 12/30/2024 10:10 PM SOLID FIBER PASTER OPERATOR [address] [address] EXAMINATION: CT sinuses EXAM DATE/TIME: 12/28/2024 1:29 PM REASON FOR EXAM: CHRONIC SINUSITIS, UNSPECIFIED Sinusitis for 2 1/2 months, Stealth protocol COMPARISON: None TECHNIQUE: Axial CT images of the paranasal sinuses are obtained without the use of IV contrast agent. Subsequent coronal and sagittal reformatted sequences are created for evaluation. A dose lowering technique was used for this procedure, which may include, but is not limited to, dose reduction technique, automated exposure control, iterative reconstruction, ALARA (As Low As Reasonably Achievable), or Image Gently techniques. FINDINGS: Limited evaluation of intracranial contents unremarkable. Globes are symmetric in size and appropriately located. Left lens extraction. Mastoid air cells are clear. Nasal bones, nasal spine, septum, hard palate, pterygoid plates, and zygomatic arches are intact. Mild diffuse mucosal thickening of the maxillary sinuses. Remainder paranasal sinuses are clear. No air-fluid levels. Normal bony lamina between the bilateral ICAs and sphenoid sinus. Frontoethmoidal recesses are patent. Both ostiomeatal units are at least partially opacified. ===== Procedure Note Michel Mejia MD - 12/30/[address] [address] EXAMINATION: CT sinuses EXAM DATE/TIME: 12/28/2024 1:29 PM REASON FOR EXAM: CHRONIC SINUSITIS, UNSPECIFIED Sinusitis for 2 1/2 months, Stealth protocol COMPARISON: None TECHNIQUE: Axial CT images of the paranasal sinuses are obtained withoutthe use of IV contrast agent. Subsequent coronal and sagittal reformattedsequences are created for evaluation. A dose lowering technique was usedfor this procedure, which may include, but is not limited to, dosereduction technique, automated exposure control, iterative reconstruction,ALARA (As Low As Reasonably Achievable), or Image Gently techniques. FINDINGS: Limited evaluation of intracranial contents unremarkable.Globes are symmetric in size and appropriately located. Left lensextraction. Mastoid air cells are clear. Nasal bones, nasal spine,septum, hard palate, pterygoid plates, and zygomatic arches are intact.Mild diffuse mucosal thickening of the maxillary sinuses. Remainderparanasal sinuses are clear. No air-fluid levels. Normal bony laminabetween the bilateral ICAs and sphenoid sinus. Frontoethmoidal recessesare patent. Both ostiomeatal units are at least partially opacified. ===== IMPRESSION: ===== 1. Mild diffuse mucosal thickening of the maxillary sinuses with noair-fluid levels. 2. At least partial opacification of bilateral ostiomeatal units. Referred By: ELI SANTOS Interpreted By: Michel Mejia MD, 12/30/2024 10:07 PM Eli Santos RESIDENCE COUNSELOR CT Final Result from Last 3 Months Insurance Care Teams Paper Box Cutter Relationship Specialty Start Date End Date Rachel Huffman PA-C [address] [place] [address] PCP - General PHYSICIAN BAG MAKING MACHINE TENDER 12/26/24
--- OUTSIDE RECORDS SUMMARY | 2025-02-06 10:26 | XMS_ITS | Clinical Summary ---
Author Organization [facility] Address [address] [place] [address] Care Team Providers Care Capacity Analyst Name Role Phone Rachel Huffman Primary Care Provider [phone] Allergies No known active allergies Medications esomeprazole [...] 05/03/2023 Assessment & Plan (12/07/2024 1:16 PM BRAKE DRUM LATHE OPERATOR): She is doing well in the right eye with no. Continue to observe Assessment & Plan (08/09/2024 10:44 PM CDT): She is doing well in the right eye with no. Continue to observe Assessment & Plan (06/27/2024 12:44 PM CDT): Managed by Ophthalmology. Continue current care. Assessment & Plan (01/06/2024 5:37 AM BRAKE DRUM LATHE OPERATOR): I wonder if she is noticing the [...] needed. Assessment & Plan (01/11/2024 10:58 AM BRAKE DRUM LATHE OPERATOR): Chronic and controlled with Ambien. Continue Ambien [...] scheduled. Assessment & Plan (01/11/2024 10:58 AM BRAKE DRUM LATHE OPERATOR): Doing well on nitrofurantoin for prevention. Continue [...] Singulair. Assessment & Plan (01/11/2024 10:58 AM BRAKE DRUM LATHE OPERATOR): Chronic and stable. Continue Flonase and Singulair. [...] -Last WWE: 11/25/23 -Last Mammogram: [address] [facility] -Last DEXA: N/A -Last eye exam: 2023 -Last MHA: N/A Will request patient's most recent colonoscopy and mammogram. Labs reviewed today. Work on healthy diet and exercise habits. Assessment & Plan (03/25/2023 9:17 AM CDT): Health Maintenance: -PCV20: -Tdap vaccine: 2017 -Influenza vaccine: 2021 -Shingles vaccine: 02/25/2022, 03/25/2023 -Colonoscopy: 05/11/22 (1 year recall), due -Last WWE: 11/05/2021 -Last Mammogram: 09/2022? at [facility] -Last DEXA: N/A -Last eye exam: N/A [...] -Last WWE: 11/05/2021 -Last Mammogram: ordered by [facility] -Last DEXA: N/A -Last eye exam: N/A [...] for routine physicals. GERD (gastroesophageal reflux disease) Assessment & Plan (06/27/2024 12:45 PM CDT): Chronic and stable. Continue Nexium daily. Continue to follow with GI as scheduled. Assessment & Plan (01/11/2024 10:57 AM BRAKE DRUM LATHE OPERATOR): Chronic and stable. Continue Nexium daily. Continue [...] OS Assessment & Plan (12/10/2024 9:37 PM BRAKE DRUM LATHE OPERATOR): IOP is great off drops. Continue to [...] (16) Assessment & Plan (01/06/2024 5:34 AM BRAKE DRUM LATHE OPERATOR): HVF and Nerve oct done today; HVF with diffuse depression but no glaucomatous changes in PSD. IOP is great off drops. Continue to observe off IOP lowering medications.. Assessment & Plan (11/01/2023 12:27 PM BRAKE DRUM LATHE OPERATOR): Repeat RNFL next visit now that cataract [...] notes: Assessment & Plan (12/10/2024 9:38 PM BRAKE DRUM LATHE OPERATOR): She has no active inlfammation today OU. [...] Ballesteros Assessment & Plan (01/06/2024 5:32 AM BRAKE DRUM LATHE OPERATOR): She has no active inlfammation today OU. Continue to treat flares as she has had long periods of quiescence off therapy. She has done well with loteprednol in the past due to steroid response Assessment & Plan (11/01/2023 12:26 PM BRAKE DRUM LATHE OPERATOR): She has no active inlfammation today OS [...] week. Assessment & Plan (01/11/2024 10:58 AM BRAKE DRUM LATHE OPERATOR): Chronic and controlled. Continue amlodipine 5 mg [...] colonoscopy. Assessment & Plan (01/11/2024 11:00 AM BRAKE DRUM LATHE OPERATOR): Chronic and stable. Continue mesalamine as prescribed. Will request her most recent colonoscopy from her GI provider. Continue to follow with GI as scheduled. Assessment & Plan (03/25/2023 9:16 AM CDT): Chronic and well controlled. Managed by GI provider in [place]. She will schedule follow-up with him for [...] OS Assessment & Plan (01/02/2024 11:06 AM BRAKE DRUM LATHE OPERATOR): Quiet today Assessment & Plan (11/01/2023 12:27 PM BRAKE DRUM LATHE OPERATOR): Active today. see section on CAU OS for treatment plan Routine adult health maintenance 02/24/2022 02/24/2022 Overview (02/24/2022): Health Maintenance: -PCV13 vaccine: N/A -PPSV23 vaccine: -Tdap vaccine: -Influenza vaccine: -Shingles vaccine: -Colonoscopy: -Last WWE: -Last Mammogram: -Last DEXA: N/A -Last eye exam: N/A -Last MHA: N/A Encounters Date Type Department Care Team Description 01/30/2025 10:30 AM CDT Office Visit [address] [address] Rachel Huffman PA Chronic maxillary sinusitis (Primary Dx); Insomnia, unspecified; Mixed hyperlipidemia; Bilateral hearing loss, unspecified hearing loss type 01/30/2025 Letter (Out) [address] [address] 12/07/2024 11:45 AM BRAKE DRUM LATHE OPERATOR Office Visit [facility] [address] [address] [place] [address] Speedy Ballesteros MD Chronic anterior uveitis of both eyes (Primary Dx); Secondary open-angle glaucoma of left eye; Combined forms of age-related cataract of right eye from Last 3 Months Immunizations Immunization Administration Dates Next Due Influenza LAIV (Nasal) 08/21/2024(Deferred: Clau ent Refused) Influenza, Quadrivalent, Spl it, Intramuscular 08/25/2015 Influenza, Quadrivalent, Spl it, Preservative Free, Intramuscular 09/29/2022 Influenza, Unspecified 08/21/2023,2021,08/21/2021,07/25,08/14/2019 Tdap 05/11/2017 ZOSTER Recombinant 03/25/2023,02/25/2022 Surgical History Surgery Date Site/Laterality Comments LASIK 11/21/2011 - 11/20/2012 SECTION 11/21/2001 - 11/20/2002 2005 CHOLECYSTECTOMY 11/21/2009 - 11/20/2010 HERNIA REPAIR 11/21/2009 - 11/20/2010 Medical History Medical History Date Comments Kidney stone Nuclear sclerotic cataract of right eye Hypertension 2013 PONV (postoperative nausea and vomiting) S/P LASIK (laser assisted in situ keratomileusis ) of both eyes 2011 Pseudophakia of left eye Family History Medical History Relation Name Comments No Known Problems Brother 1 No Known Problems Brother 2 Heart disease Father Speedy Hypertension Father Speedy Glaucoma Maternal Grandmother Macular degeneration Maternal Grandmother Hypertension Mother Patricia Anesthesia problems Neg Hx Diabetes Neg Hx Relation Name Status Comments Brother 1 Alive Brother 2 Alive Father Speedy Alive Maternal Grandmother Mother Patricia Alive Social History Tobacco Use Types Packs/Day Years [...] PM CDT Sexual Orientation Not on file Obstetrics History Last Filed Vital Signs Vital Sign Reading [...] 01/30/2025 10:32 AM CDT Plan of Treatment Health Maintenance Due Date Last Done Comments Hepatitis C Screening 1971 Hepatitis B Screening 1989 Influenza Vaccine (#1) 2024 , 09/29/2022, 08/21/2022, Additional history exists Depression Screening 06/27/2025 06/27/2024, 03/25/2023, 02/25/2022 Regular Well Visit/Exam 18-64 06/27/2025 06/27/2024, 03/25/2023, 02/25/2022 Breast Cancer Screening-Mammogram 09/28/2025 09/28/2024, 09/26/2023, 09/24/2022 DTaP/Tdap/Td Vaccine (2 - Td or Tdap) 05/11/2027 05/11/2017 Colon Cancer Screening-Colonoscopy 09/06/2028 09/06/2023, 05/11/2022, 07/11/2009 Cervical Cancer Screening 11/25/20282023, 03/28/2023, 11/16/2021, Additional history exists Covid-19 Vaccine Discontinued 12/16/2021 Zoster Vaccine Completed 03/25/2023, 02/25/2022 Pneumococcal vaccine <65 Aged Out No longer eligible based on patient's age to complete this topic Medical Devices Implanted Type Area Category Analyst Device Identifier Shelf Expiration Date Model / Serial / Lot Box Jump [id number] 19.0d Tecnis Protec 6mm 13mm 1 Piece Anterior Aspheric Square Edge Uv - [id number] - [id number] Implanted:Qty: 1 on 07/22/2023 by Speedy Ballesteros MD at [facility] Lens Left: Eye Box Jump [id number] 10/02/2024 [id number] / [id number] / 0 Procedures Procedure Name Priority Date/Time Associated Diagnosis Comments OCT, OPTIC NERVE - OU - BOTH EYES Routine 12/07/2024 11:45 AM BRAKE DRUM LATHE OPERATOR Secondary open-angle glaucoma of left eye MAMMOGRAPHY Routine 09/28/2024 PAP SMEAR WITH HPV Routine 11/25/2023 COLONOSCOPY Routine 09/06/2023 from Last 3 Months or Most Recently Relevant to Health Maintenance Results * OCT, Optic Nerve - OU - Both Eyes (12/07/2024 11:45 AM BRAKE DRUM LATHE OPERATOR) RNFL OS 67 micrometers CONTINUUM RNFL OD 92 micrometers CONTINUUM Anatomical Region Laterality Modality Head Optical Coherenc e Tomography Narrative 12/10/2024 9:40 PM BRAKE DRUM LATHE OPERATOR Right Eye Average RNFL thickness 92 micrometers. [...] Most Recently Relevant to Health Maintenance Insurance [facility] CLAIMS [facility] CLAIMS [facility] CLAIMS Care Teams Capacity Analyst Relationship Specialty Start Date End Date Rachel Huffman PA [address] [place] [address] PCP - General Family Medicine 02/15/22
--- OUTSIDE RECORDS SUMMARY | 2025-02-06 10:26 | XMS_ITS | Patient Health Record ---
Author Organization [facility] Address [address] [facility] [address] [place] [address] Care Team Providers Care Conditioning Coach Name Role Phone Eve CORRALES, [place] [facility] Primary Care Provider Unavail able Sebastien López Unavailable [phone] Reason For Referral No Information Medications Medication SIG (Take, Route, Frequency, Duration) Notes Start Date End Date Status NexIUM 40 MG Orally daily Acti ve Lialda 1.2 GM 4 tablets Orally Once a day Active Norvasc 10 MG 1 tablet Orally Once a day Active Problems Problem Type SNOMED Code ICD Code Onset Dates Problem Status W/U Status Risk Notes Problem Benign neoplasm of skin of trunk (38399045) Other benign neoplasm of skin of trunk (D23.5) Active confirmed Problem 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) (568043228) Skin changes due to chronic exposure to nonionizing radiation, unspecified (L57.9) Active confirmed Problem 977508435 Epidermal cyst (L72.0) Active confirmed Problem Inflamed seborrheic keratosis (969647356) Inflamed seborrheic keratosis (L82.0) Active confirmed Problem 626781475 Family history of melanoma (Z80.8) Active confirmed Plan Of Treatment No Information Insurance Providers Payer Name Payer Address Payer Phone Subscriber Number Group Number Insured Name Patient Relationship to Insured Coverage Start Date Coverage End Date [facility] [address] [place] [address] [id number] Devan Crawford Spouse - patient is the spouse of the insured Medical (General) History Medical History History ICD Code Hypertension (HTN) Ulcerative colitis Nonsmoker - 12/03/20 Influenza vaccine up to date - 08/05/2020 Surgical History Surgery Date(Month/Year) C spine gallbladder lipotripsy c-sections x 2 Hospitalization History Reason Date(Month/Year) see above
== END 2025-02-06 09:58 | disposition home or self-care (01) ==
PROVIDERS: Emergency Provider Nurse Practitioner Family; PCP Physician Assistant
DX: J01.90 Acute sinusitis, unspecified (principal); I10 Essential (primary) hypertension
CPT/HCPCS: 99213; G0463